=== PATIENT | male | born 2000 | race Caucasian/White ===

== ENCOUNTER 2021-02-13 09:37 | Emergency (ER) | payer OTHER ==
[~2021-02-13] VITALS: Ht 195 cm; Wt 93.0 kg
[2021-02-13 09:44] VITALS: BP 115/54
--- NOTE | 2021-02-13 10:15 | Diagnostic Imaging Report ---
Left ankle at 10:05. Indication: Ankle pain 3 views were obtained. There are no prior studies available for comparison. There is no fracture, dislocation or acute bony abnormality evident. The ankle mortise is not widened and the talar dome is smooth. There is considerable soft tissue edema over the lateral malleolus however. Impression: 1. There is no evidence for an acute bony abnormality. 2. There is considerable soft tissue edema over the lateral malleolus. Dictated by: Dictated on workstation # [id number]
--- NOTE | 2021-02-13 10:18 | ED Lower Extremity ---
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 CO OF PAIN AND SWELLING Source: patient Exam Limitations: no limitations History of Present Illness Date Seen by Provider: Feb 13, 2021 Time Seen by Provider: 09:50 Initial Comments Here with complaint of left ankle pain. He rolled it yesterday during training. 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 States that he has had previous ankle injuries on the left. Was still able to walk on it. Last night he iced it 15 minutes on and 15 minutes off as well as took some ibuprofen. He had more significant swelling yesterday evening but the swelling went down. Today at work, he noted that the pain was still fairly persistent. He was seen by his command and sent here for medical evaluation. He was able to walk-in. He is in the and is wearing boots at time of arrival. Onset: yesterday Severity: mild Pain/Injury Location: left ankle Method of Injury: twisted Modifying Factors: Improves With Immobilization; Worse With Movement Allergies and Home Medications Allergies Coded Allergies: No Known Drug Allergies (Unverified , 02/13/21) Patient Home Medication List Home Medication List Reviewed: Yes Review of Systems Constitutional: No chills, No fever Respiratory: no symptoms reported Cardiovascular: no symptoms reported Musculoskeletal: see HPI, joint pain, joint swelling, muscle pain Skin: No change in color, No lesions Psychiatric/Neurological: No Symptoms Reported Past Vngmnoy-Hrpaga-Ffojho Hx Patient Social History Tobacco Use?: No Substance use?: No Alcohol Use?: No Pt feels they are or have been: No Past Medical History Surgeries: Yes Orthopedic Respiratory: No Cardiac: No Musculoskeletal: Yes (Previous left ankle injuries) Family Medical History Reviewed and Corrections made No Pertinent Family Hx Physical Exam Vital Signs Vital Signs - First Documented 02/13/21 09:44 Temp 36.8 Pulse 78 Resp 18 B/P (MAP) 115/54 (74) Pulse Ox 97 Capillary Refill : Less Than 3 Seconds Height, Weight, BMI Height: '" Weight: lbs. oz. kg; 24.00 BMI Method: General Appearance: WD/WN, no apparent distress Cardiovascular: regular rate, rhythm, no murmur Respiratory: lungs clear, normal breath sounds Ankles: left ankle limited range of motion, left ankle soft tissue tenderness, left ankle swelling (Lateral aspect), left ankle other (No ecchymosis or lesions noted. Swelling over lateral malleoli are area and proximal foot.) Feet: left foot soft tissue tenderness (Proximal lateral near lateral malleolus), left foot swelling (Proximal lateral) Neurologic/Tendon: normal sensation, normal motor functions, normal tendon functions Neurologic/Psychiatric: alert, oriented x 3 Skin: normal color, warm/dry Progress/Results/Core Measures Results/Orders My Orders Orders - FLORENTIN MUNOZ MD Ankle, Left, 3 Views (02/13/21 09:50) Vital Signs/I&O 02/13/21 09:44 Temp 36.8 Pulse 78 Resp 18 B/P (MAP) 115/54 (74) Pulse Ox 97 Blood Pressure Mean: 74 Progress Progress Note : Progress Note Seen and evaluated. X-ray left ankle. Ice pack given. Declined pain medicine. Monitor patient. 1017: No acute fracture noted. Seems to be more related to sprain. Line of duty paperwork completed. Discharged home with return precautions. Patient verbalized understanding of instructions and agreement with plan. Diagnostic Imaging Diagonstic Imaging: Xray Plain Films/CT/US/NM/MRI: ankle Comments [facility], [place] NAME: YOLIEPADMINI [facility] REC#: [id number] PT STATUS: REG ER : 2000 PHYSICIAN: FLORENTIN MUNOZ MD ADMIT DATE: 02/13/21/ER Draft Date of Exam:02/13/21 ANKLE, LEFT, 3 VIEWS Left ankle at 10:05. Indication: Ankle pain 3 views were obtained. There are no prior studies available for comparison. There is no fracture, dislocation or acute bony abnormality evident. The ankle mortise is not widened and the talar dome is smooth. There is considerable soft tissue edema over the lateral malleolus however. Impression: 1. There is no evidence for an acute bony abnormality. 2. There is considerable soft tissue edema over the lateral malleolus. Dictated on workstation # [id number] Dict: 02/13/21 1013 Trans: 02/13/21 1015 CVB [id number] Interpreted by: ZULEYKA MARTINEZ MD Electronically signed by: Departure Impression Primary Impression: Moderate left ankle sprain Qualified Codes: S93.402A - Sprain of unspecified ligament of left ankle, initial encounter Disposition: 01 HOME, SELF-CARE Condition: Stable Departure-Patient Inst. Decision time for Depature: 10:18 Referrals: NO,LOCAL PHYSICIAN (PCP/Family) Primary Care Physician Patient Instructions: Ankle Sprain (DC) Add. Discharge Instructions: All discharge instructions reviewed with patient and/or family. Voiced understanding. You may take ibuprofen 800 mg every 8 hours as needed for pain. You may also take Tylenol/acetaminophen 1000 mg every 8 hours as needed for pain. Ice packs to area of concern 20 minutes/h as needed to reduce swelling. Use Flavio wrap over the next several days to reduce swelling. Elevate injured leg several times daily to reduce swelling over the next day or 2. You may walk at your own pace. No running or jumping for 7 days. You may use Flavio wrap for the next 7 days as needed. Return for worse pain, swelling, weakness, numbness or other concerns as needed. FLORENTIN MUNOZ MD Feb 13, 2021 10:18
== END 2021-02-13 10:20 | disposition home or self-care (01) ==
LOC: ER 09:39
DX: S93.402A Sprain of unspecified ligament of left ankle, initial encounter (principal); X50.1XXA Overexertion from prolonged static or awkward postures, initial encounter
CPT/HCPCS: 73610; 99283